=== PATIENT | male | born 1955 | race Caucasian/White ===

== ENCOUNTER 2024-03-03 09:59 | Outpatient (CLI) | payer MEDICARE ==
[2024-03-03] MEDS ORDERED: BACI/NEOM/POLY B OINT PKT 1 UDPKT PACKET ONE (10:35)
== END 2024-03-03 23:59 | disposition home or self-care (01) ==
LOC: WOU 09:59
PROVIDERS: ATTEND Podiatrist Foot & Ankle Surgery
DX: S91.115A Laceration without foreign body of left lesser toe(s) without damage to nail, initial encounter (principal); X58.XXXA Exposure to other specified factors, initial encounter; Y92.89 Other specified places as the place of occurrence of the external cause; M20.42 Other hammer toe(s) (acquired), left foot; M20.41 Other hammer toe(s) (acquired), right foot; R60.1 Generalized edema; I48.91 Unspecified atrial fibrillation; Z79.01 Long term (current) use of anticoagulants; M13.862 Other specified arthritis, left knee; M13.861 Other specified arthritis, right knee